=== PATIENT | female | born 1945 | race Caucasian/White ===

== ENCOUNTER 2017-08-01 07:47 | Outpatient (CLI) ==
--- NOTE | 2017-08-01 11:29 | MRI ---
EXAM: MRI of the right shoulder without contrast COMPARISON: None available. HISTORY: Right arm pain and decreased range of motion. No known injury. TECHNIQUE: Multiplanar noncontrast MR images of the right shoulder were acquired using a 1.2 Courtney m agnet. Several sequences were repeated due to patient motion artifact. There is moderately severe supraspinatus tendinosis which is most focused along the insertional fiber s with a tiny partial-thickness/rim rent tear involving the posterior insertional fibers measuring 3 mm medial to lateral dimension. Mild infraspinatus and subscapularis tendinosis. No full-thickness rotator cuff tear or tendon retraction. Minimal bursal surface fraying of the supraspinatus. Small amount of fluid in the subacromial/subdeltoid bursa. Limited assessment of the glenoid labrum on this non arthrographic study. Hyperintense signal involv ing the axillary pouch/inferior glenohumeral ligament which may represent sequela of a capsular sprai n or changes of adhesive capsulitis. Mild glenohumeral joint osteoarthrosis without an acute fractur e or dislocation. The long head of the biceps is located within the bicipital groove and is intact. Mild hypertrophic degenerative changes of the acromioclavicular joint. Type 1 acromion. No evidence of an os acromiale or abnormal widening of the acromioclavicular joint space. No soft tissue mass i dentified. IMPRESSION: 1. Mild to moderate rotator cuff tendinosis. Tiny partial-thickness/rim rent tear of the insertiona l fibers of the supraspinatus as well as bursal surface fraying without a full-thickness tear or tend on retraction. 2. Small amount of fluid in the subacromial/subdeltoid bursa. 3. Hyperintense signal involving the axillary pouch which may represent sequela of a capsular sprain or changes of adhesive capsulitis. 4. Mild degenerative changes of the acromioclavicular and glenohumeral joints.
--- NOTE | 2017-08-01 22:22 | MRI ---
EXAM: Cervical spine MRI without contrast. HISTORY: Neck pain. COMPARISON: None. TECHNIQUE: Multiplanar, multisequence MR images were acquired of the cervical spine without contrast . FINDINGS: There is no cerebellar tonsillar ectopia. Small effusions are present at the articulation s between the occipital condyles and lateral masses of C1 bilaterally. The cervical cord has normal s ignal intensity. There is straightening of the usual cervical lordosis. The cervical vertebra are n ormal in height and intrinsic bone marrow signal. There is osteophytosis with mild disc space narrow ing and degenerative endplate changes at C3-4 and osteophytosis with disc space narrowing and mild en dplate irregularity at C5-6 and C6-7. There are no paravertebral masses. The visualized lung apices are clear. C2-3: The intervertebral disc is normal. C3-4: There is a mild diffuse disc osteophyte complex, minor bilateral uncovertebral hypertrophy and minor right and mild left facet arthropathy. There is no central canal stenosis or foraminal stenos is. C4-5: There is a minor disc bulge and tiny right paracentral annular tear. There is no central savana l stenosis or foraminal stenosis. C5-6: There is a mild diffuse disc osteophyte complex and bilateral uncovertebral hypertrophy, great er on the left. This causes moderate left neural foraminal stenosis. C6-7: There is a mild disc bulge and bilateral uncovertebral hypertrophy. There is mild right neura l foraminal stenosis. C7-T1: The intervertebral disc is normal. IMPRESSION: 1. Mild cervical degenerative spondylosis without central canal stenosis. 2. No cervical disc herniations.
== END 2017-08-01 07:48 | disposition home or self-care (01) ==
LOC: RAD 07:47
PROVIDERS: ATTEND Internal Medicine
DX: M25.511 Pain in right shoulder (principal); M54.2 Cervicalgia

== ENCOUNTER 2017-08-22 09:00 | Outpatient (RCR) ==
--- NOTE | 2017-08-19 08:40 | RS.OPPTEV2 ---
Date of Note: 08/14/17 Visit #: 1 Date of Evaluation: 08/14/17 Payer Source: MEDICARE Surgery Performed?: No Treatment Diagnosis: Incomplete rotator cuff tear R shld History of Condition/Mechanism of Injury:: pt states pain began 2 months ago, no specific injury that she can recall. Prior Level of Function.....Patient was independent with: ADL's, Self Care, Work /Vocation, Ambulation/Mobility, Community Integration/Access Functional Limitations: Sleep, Reaching, Pushing, Pulling, Lifting, Carrying Current Subjective/complaints:: pt states that she has been hurting for approx 2 months R shld. pt has had hx of cervical pain over last several years. Treatment Side (optional): Right *Precautions: n/a Medical History Medical History: COPD, Arthritis Medical History Comments:: DDD cervical spine, fibromyalgia Surgical History: Hysterectomy Smoking Status: Former smoker Diagnostic Testing/Imaging:: MRI R shld: mild to mod rotator cuff tendinosis, small partial thickness rim rent tear of insertional fibers of the supraspinatus as well as bursal surface fraying, hyperintense signal involving axillary pouch which may represent sequela of a capsular sprain or changes of adhesive capsulitis. mild degenerative changes of acromioclavicular and glenohumeral joints. Hx Home Medications: pt to bring list next visit Patient's Goals: decrease shld pain. Pain Assessment - Pain Description Pain Location: R shld Pain Description: Sharp, Aching Current Pain Intensity: 5/10 Worst Pain Intensity: 8/10 Functional Outcome Measure UE Functional Index: 46 (42%) - G Codes & Severity Modifier G Codes & Modifier: carrying, moving, handling current CK. carrying, moving, handling goal CI Source of G Code score: UE functional index Observation - Observation Posture: Forward Head, Rounded Shoulders, Increased Thoracic Kyphosis Handedness: Right Gait - Gait Pattern General Gait Pattern Observation: No Deviations/Normal General Range of Motion: cervical ROM limited in extension and L rotation with pain. LUE WFL's. BLE WFL's Muscle Strength: LUE 4+/5. BLE 5/5 Shoulder ROM: Left WFL's Shoulder Muscle Strength: Left WFL's - Right Shoulder ROM Right Shoulder Flexion: 140 (AROM) Right Shoulder Abduction: 88 (AROM) Right Shoulder External Rotation: 40 (AROM) Right Shoulder ROM Limitations: Soft Tissue Tightness, Muscle Weakness, Pain - Right Shoulder Strength Right Shoulder Flexion: 3- Fair- Right Shoulder Abduction: 3- Fair- Right Shoulder Adduction: 3+ Fair+ Right Shoulder External Rotation: 3- Fair- - Special Tests Shoulder Empty Can (Supraspinatus) Test: Negative Right Shoulder Speed's Sign Test: Positive Right Shoulder Drop Arm Test: Negative Right Palpation Palpation Findings: Tenderness, Trigger Point Comments:: tenderness and trigger points noted in area of upper scapula as well as AC joint tenderness. pt also with upper trap tightness as well as tenderness in cervical paraspinal Sensation - Sensation Right Upper Extremity: Impaired (n/t R hand) Left Upper Extremity: Intact/Normal Right Lower Extremity: Intact/Normal Left Lower Extremity: Intact/Normal Balance - Sitting Balance Static Sitting Balance: Normal Dynamic Sitting Balance: Normal - Standing Balance Static Standing Balance: Normal Dynamic Standing Balance: Normal - Heat/Cryotherapy Treatment: Cryotherapy Comments:: R shld Interventions - Exercise/Activities/Manual Therapy Exercises/Activities: pt performed gentle upper trap stretches, scapular retraction, shld shrugs, corner stretch Manual Therapy: n/a HOME EXERCISE PROGRAM: pt given written HEP with corner stretch, scapular retraction, shld shrugs - Charges Timed Code Treatment Minutes: 48 Total Treatment Time: 52 Procedures billed for this date of service:: klelie santiago, ice pack EVALUATION COMPLEXITY LEVEL EVALUATION COMPLEXITY LEVEL: HISTORY: Medium (fibromyalgia, OA, COPD), EXAM OF BODY SYSTEMS: Low (pain, strength, ROM ), CLINICAL PRESENTATION: Low (stable), CLINICAL DECISION MAKING: Low Assessment Assessment: pt presents with pain in R shld as well as decreased R shld ROM, strength. pt pain is limiting ability to perform household duties. 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 Goal to be met by: 09/25/17 Goal #4: Independent with HEP Goal to be met by: 09/25/17 Plan - Treatment to be Provided Procedures: Therapeutic Exercises, Therapeutic Activity, Manual Therapy, Massage , Patient Education Modalities: Electrical Stimulation, Ultrasound/Phonophoresis, Class IV Laser, Cryotherapy, Hot Packs - Treatment Plan Frequency: 3 X week Duration: 6 weeks ORDER # VISITS AND/OR THROUGH DATE: 09/25/17 - Treatment Code (1) Incomplete rotator cuff tear or rupture of right shoulder, not specified as traumatic Code(s): M75.111 - INCOMPLETE ROTATR-CUFF TEAR/RUPTR OF R SHOULDER, NOT TRAUMA (2) Pain in joint, shoulder region Code(s): M25.519 - PAIN IN UNSPECIFIED SHOULDER Qualifiers: Laterality: right Qualified Code(s): M25.511 - Pain in right shoulder (3) Joint stiffness Code(s): M25.60 - STIFFNESS OF UNSPECIFIED JOINT, NOT ELSEWHERE CLASSIFIED
--- NOTE | 2017-08-19 11:03 | RS.OPPTDN ---
Subjective Date of Note: 08/19/17 Visit #: 2 Date of Evaluation: 08/14/17 Payer Source: MEDICARE Treatment Diagnosis: Incomplete rotator cuff tear R shld Current Subjective/complaints:: Patient reports she has some increased right shoulder pain with initial HEP. Following treatment today patient reports a reduction in right shoulder pain. *Precautions: n/a Pain Assessment - Pain Description Current Pain Intensity: 5/10, decreased with treatment - Treatment Modality: Ultrasound Parameters/Method Applied: [id number] at 1.5w/cm2 to the right shoulder joint and the upper arm prior to EX. Patient Position: Sitting - Heat/Cryotherapy Treatment: Hot Pack (En ded with HP [id number] to the right shoulder joint. Patient in sitting. ) Interventions - Exercise/Activities/Manual Therapy Exercises/Activities: PROM of the right shoulder. Gentle assisted upper trap stretches and mid scap stretching. Scapular retraction, shld shrugs. Isometric shoulder ext, multiple reps. Isometric right shoulder IR, ER, and biceps, sets of 4s/5reps each. Witheld corner stretch due to reports of discomfort. Instructed in Codmans and patient given copy of new ex. Total minutes of Exercise: 15mins Manual Therapy: n/a HOME EXERCISE PROGRAM: pt given written HEP with corner stretch, scapular retraction, shld shrugs. Codmans. - Charges Timed Code Treatment Minutes: 25mins Total Treatment Time: 40mins Procedures billed for this date of service:: US, EX, HP Assessment: Patient responded to modalities with report of pain reduction. Seems motivated to progress with HEP. 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
--- NOTE | 2017-08-22 09:59 | RS.OPPTDN ---
Subjective Date of Note: 08/22/17 Visit #: 3 Date of Evaluation: 08/14/17 Payer Source: MEDICARE Treatment Diagnosis: Incomplete rotator cuff tear R shld Current Subjective/complaints:: Patient reports last treatment helped reduce right shoulder pain. She states she is working on HEP. *Precautions: n/a Pain Assessment - Pain Description Pain Location: right shoulder and upper arm Pain Description: Aching Current Pain Intensity: 2/10 following treatment - Treatment Modality: Ultrasound Parameters/Method Applied: [id number] at 1.5w/cm2 to the right shoulder joint and upper arm prior to EX. Patient Position: Sitting Interventions - Exercise/Activities/Manual Therapy Exercises/Activities: PROM of the right shoulder. Scapular retraction, shld shrugs. Isometric shoulder ext, add, abd, flex, IR, and ER at neutral position, 4s/5reps. Wand for bilateral overhead flexion, 10reps. Yellow theraband for scap retraction and bilateral shoulder ER, 2s/10reps each. Total minutes of Exercise: 15mins Manual Therapy: n/a HOME EXERCISE PROGRAM: pt given written HEP with corner stretch, scapular retraction, shld shrugs. Codmans. Yellow theraband for scap retraction and bilateral shoulder ER. - Charges Timed Code Treatment Minutes: 25mins Total Treatment Time: 45mins Procedures billed for this date of service:: HP, US, EX Assessment: Patient reporting improvement in pain and demos increased ability with exercise. Patient Education: Home Exercise Program Patient demonstrates compliance with HEP?: Yes Short Term Goals Goal #1: pt rate pain R shld <5 with activity Goal to be met by: 09/04/17 Progress towards Goal:: Progressing Goal #2: Improve ROM R shld flex 150 abd 95, ER 45 Goal to be met by: 09/04/17 Progress towards Goal:: Progressing Goal #3: Decreased upper trap tightness bilateral Goal to be met by: 09/04/17 Progress towards Goal:: Progressing Automotive Service Technician Goals Goal #1: pt rate pain < 3 R shld With activity Goal to be met by: 09/25/17 Goal #2: Improve strength R UE 4/5 Goal to be met by: 09/25/17 Goal #3: 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
== END 2017-08-24 ==
PROVIDERS: ATTEND Orthopaedic Surgery
DX: M75.111 Incomplete rotator cuff tear or rupture of right shoulder, not specified as traumatic (principal)

== ENCOUNTER 2017-09-12 09:00 | Outpatient (RCR) ==
--- NOTE | 2017-08-26 12:14 | RS.OPPTDN ---
Subjective Date of Note: 08/26/17 Visit #: 4 Date of Evaluation: 08/14/17 Payer Source: MEDICARE Treatment Diagnosis: Incomplete rotator cuff tear R shld Current Subjective/complaints:: Patient says treatment has been helping, but still has soreness to the R upper arm and has difficulty with donning/doffing undergarments. *Precautions: n/a Pain Assessment - Pain Description Pain Location: sore to the anterior R shoulder and along the upper arm - Treatment Modality: Ultrasound Parameters/Method Applied: continuous @ 1.5 w/cm2 x 10 mins to the R upper arm Patient Position: Sitting - Heat/Cryotherapy Treatment: Hot Pack (15 mins to the R shoulder in sitting) Interventions - Exercise/Activities/Manual Therapy Exercises/Activities: PROM of the right shoulder. Scapular retraction, shld shrugs. Isometric shoulder ext, add, abd, flex, IR, and ER at neutral position, 4s/5reps. Wand for bilateral overhead flexion, 10reps. Yellow theraband for scap retraction and bilateral shoulder ER, 2s/10reps each. Total minutes of Exercise: 15 Manual Therapy: n/a HOME EXERCISE PROGRAM: pt given written HEP with corner stretch, scapular retraction, shld shrugs. Codmans. Yellow theraband for scap retraction and bilateral shoulder ER. - Charges Timed Code Treatment Minutes: 25 Total Treatment Time: 40 Procedures billed for this date of service:: hp, u/s, ex Assessment: Patient seeing mild improvement with R shoulder pain and appears to benoit all therex well to near WNL in sitting. Patient continues with some funcitonal deficits including donning/doffing undergarments. Patient Education: Education of diagnosis, Home Exercise Program Patient demonstrates compliance with HEP?: Yes Short Term Goals Goal #1: pt rate pain R shld <5 with activity Goal to be met by: 09/04/17 Progress towards Goal:: Progressing Goal #2: Improve ROM R shld flex 150 abd 95, ER 45 Goal to be met by: 09/04/17 Progress towards Goal:: Progressing Goal #3: Decreased upper trap tightness bilateral Goal to be met by: 09/04/17 Progress towards Goal:: Progressing Wheel Press Operator Goals Goal #1: pt rate pain < 3 R shld With activity Goal to be met by: 09/25/17 Goal #2: Improve strength R UE 4/5 Goal to be met by: 09/25/17 Goal #3: 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
--- NOTE | 2017-09-02 10:06 | RS.OPPTDN ---
Subjective Date of Note: 09/02/17 Visit #: 6 Date of Evaluation: 08/14/17 Payer Source: MEDICARE Treatment Diagnosis: Incomplete rotator cuff tear R shld Current Subjective/complaints:: Patient reports the R shoulder is not hurting at this time ,is doing her home exercises . *Precautions: n/a - Treatment Modality: Ultrasound Parameters/Method Applied: 10 mins. @ 1.5 w/cm2 to R shoulder , continuous mode. Patient Position: Sitting - Heat/Cryotherapy Treatment: Hot Pack (20 mins. prior to US and exerises) Interventions - Exercise/Activities/Manual Therapy Exercises/Activities: PROM of the right shoulder. Scapular retraction, shld shrugs. Isometric shoulder ext, add, abd, flex, IR, and ER at neutral position, 2/10/reps. Wand for bilateral overhead flexion, 2/10reps. HEP review. Total minutes of Exercise: 20 Manual Therapy: n/a Total minutes of Manual Therapy: 0 HOME EXERCISE PROGRAM: pt given written HEP with corner stretch, scapular retraction, shld shrugs. Codmans. Yellow theraband for scap retraction and bilateral shoulder ER. - Charges Timed Code Treatment Minutes: 30 Total Treatment Time: 50 Procedures billed for this date of service:: hp,US,ex Assessment: Patient reports slight stretch dicomfort at end range of ER today.She tolerates isometrics well.She has good understanding of HEP and safety precautions.She has increased discomfort with reaching behind her,such as tucking a shirt. Patient Education: Education of diagnosis, Body/Joint mechanics, Home Exercise Program, Home Safety, Activity Modification, Education of Plan of Care Patient demonstrates compliance with HEP?: Yes Short Term Goals Goal #1: pt rate pain R shld <5 with activity Goal to be met by: 09/04/17 Progress towards Goal:: Progressing Goal #2: Improve ROM R shld flex 150 abd 95, ER 45 Goal to be met by: 09/04/17 Progress towards Goal:: Progressing Goal #3: Decreased upper trap tightness bilateral Goal to be met by: 09/04/17 Progress towards Goal:: Progressing [facility] Goals Goal #1: pt rate pain < 3 R shld With activity Goal to be met by: 09/25/17 Progress towards goal: Progressing Goal #2: Improve strength R UE 4/5 Goal to be met by: 09/25/17 Goal #3: 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
--- NOTE | 2017-09-05 11:24 | RS.OPPTDN ---
Subjective Date of Note: 09/05/17 Visit #: 7 Date of Evaluation: 08/14/17 Payer Source: MEDICARE Treatment Diagnosis: Incomplete rotator cuff tear R shld Current Subjective/complaints:: Patient reports the shoulder feels better today.She is doing her exercises at home . *Precautions: n/a Pain Assessment - Pain Description Pain Description: Dull, Aching Pain Description: "minimal " - Treatment Modality: Ultrasound Parameters/Method Applied: 10 mins. ,continuous mode @ 1.5 w/cm2 to R shoulder. Patient Position: Sitting - Heat/Cryotherapy Treatment: Hot Pack (20 mins. prior to US and exercise) Interventions - Exercise/Activities/Manual Therapy Exercises/Activities: PROM of the right shoulder. Scapular retraction, shld shrugs. Isometric shoulder ext, add, abd, flex, IR, and ER at neutral position, 2/10/reps. Yellow theraband exercises for shoulder rowing motion ,IR /ER , 2/10 each.Standing posture education ,scapular pro/retraction. Total minutes of Exercise: 20 Manual Therapy: n/a Total minutes of Manual Therapy: 0 HOME EXERCISE PROGRAM: pt given written HEP with corner stretch, scapular retraction, shld shrugs. Codmans. Yellow theraband for scap retraction and bilateral shoulder ER. - Charges Timed Code Treatment Minutes: 30 Total Treatment Time: 50 Procedures billed for this date of service:: hp,US,ex Assessment: Patient reorts less pain with ROM today,except she has pain with shoulder extension at end range with rowing motion.She is attentive and compliant to HEP. Patient Education: Education of diagnosis, Body/Joint mechanics, Home Exercise Program, Home Safety, Activity Modification, Education of Plan of Care Patient demonstrates compliance with HEP?: Yes Short Term Goals Goal #1: pt rate pain R shld <5 with activity Goal to be met by: 09/04/17 Progress towards Goal:: Progressing Goal #2: Improve ROM R shld flex 150 abd 95, ER 45 Goal to be met by: 09/04/17 Progress towards Goal:: Progressing Goal #3: Decreased upper trap tightness bilateral Goal to be met by: 09/04/17 Progress towards Goal:: Progressing Diesel Powerplant Supervisor Goals Goal #1: pt rate pain < 3 R shld With activity Goal to be met by: 09/25/17 Progress towards goal: Progressing Goal #2: Improve strength R UE 4/5 Goal to be met by: 09/25/17 Goal #3: 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
--- NOTE | 2017-09-09 15:56 | RS.OPPTDN ---
Subjective Date of Note: 09/09/17 Visit #: 8 Date of Evaluation: 08/14/17 Payer Source: MEDICARE Treatment Diagnosis: Incomplete rotator cuff tear R shld Current Subjective/complaints:: Patient reports right shoulder has been progressing well but she has some increased discomfort today. She feels she slept wrong on her right side. Reports she is working on HEP and has increased her daily activities at home. *Precautions: n/a Pain Assessment - Pain Description Pain Location: Right shoulder Pain Description: Aching Current Pain Intensity: 3/10 - Treatment Modality: Ultrasound Parameters/Method Applied: [id number] at 1.5w/cm2 to the right shoulder joint and upper arm. Patient Position: Sitting - Heat/Cryotherapy Treatment: Hot Pack ([id number] to the right shoulder prior to US and EX. Patient in sitting. ) Interventions - Exercise/Activities/Manual Therapy Exercises/Activities: PROM of the right shoulder. Scapular retraction, shld shrugs. Isometric shoulder ext, add, abd, flex, IR, and ER at neutral position, 2/10/reps. Began 1# dumbells for resistive right shoulder flexion, scaption, and ER in 90/90 position, 3s/5reps each. 15miYellow theraband exercises for bilateral shoulder ER, 2s/10reps. Scapular retraction green theraband 2s/10reps. Total minutes of Exercise: 15mins Manual Therapy: n/a HOME EXERCISE PROGRAM: pt given written HEP with corner stretch, scapular retraction, shld shrugs. Codmans. Yellow theraband for scap retraction and bilateral shoulder ER. - Charges Timed Code Treatment Minutes: 25mins Total Treatment Time: 45mins Procedures billed for this date of service:: HP, US, EX Assessment: Patient reporting an increase in her discomfort today, but is able to progress right shoulder strengtheing exercise. Patient Education: Education of diagnosis, Body/Joint mechanics, Home Exercise Program, Home Safety Patient demonstrates compliance with HEP?: Yes Short Term Goals Goal #1: pt rate pain R shld <5 with activity Goal to be met by: 09/04/17 Progress towards Goal:: Partially Met Goal #2: Improve ROM R shld flex 150 abd 95, ER 45 Goal to be met by: 09/04/17 Progress towards Goal:: Progressing Goal #3: Decreased upper trap tightness bilateral Goal to be met by: 09/04/17 Progress towards Goal:: Partially Met Jail Goals Goal #1: pt rate pain < 3 R shld With activity Goal to be met by: 09/25/17 Progress towards goal: Progressing Goal #2: Improve strength R UE 4/5 Goal to be met by: 09/25/17 Goal #3: 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
--- NOTE | 2017-09-10 12:50 | RS.OPPTDN ---
Subjective Date of Note: 08/29/17 Visit #: 5 Date of Evaluation: 08/14/17 Payer Source: MEDICARE Treatment Diagnosis: Incomplete rotator cuff tear R shld Current Subjective/complaints:: Patient reports she is using the right UE more with light daily activities. States she has less trouble donning/doffing shirts , but cal reach back to hook her bra. Reports she cannot lift dishes consistently. *Precautions: n/a Pain Assessment - Pain Description Pain Location: Right shoulder joint and upper arm Pain Description: Aching Current Pain Intensity: mild to mod - Treatment Parameters/Method Applied: [id number] @ 1.5w/cm2 right shoulder joint and upper arm prior to EX. Patient Position: Sitting - Heat/Cryotherapy Treatment: Hot Pack ([id number] to the right shoulder prior to US and EX. Patient in sitting. ) Interventions - Exercise/Activities/Manual Therapy Exercises/Activities: PROM of the right shoulder. Scapular retraction, shld shrugs. Isometric shoulder ext, add, abd, flex, IR, and ER at neutral position, 4s/5reps. Wand for bilateral overhead flexion, 10reps. Yellow theraband for scap retraction and bilateral shoulder ER, 2s/10reps each. Total minutes of Exercise: 15mins Manual Therapy: n/a HOME EXERCISE PROGRAM: pt given written HEP with corner stretch, scapular retraction, shld shrugs. Codmans. Yellow theraband for scap retraction and bilateral shoulder ER. - Charges Timed Code Treatment Minutes: 25mins Total Treatment Time: 45mins Procedures billed for this date of service:: HP, US, EX Assessment: Patient progressing with strengthening. Patient Education: Body/Joint mechanics, Home Exercise Program, Activity Modification Patient demonstrates compliance with HEP?: Yes Short Term Goals Goal #1: pt rate pain R shld <5 with activity Goal to be met by: 09/04/17 Progress towards Goal:: Progressing Goal #2: Improve ROM R shld flex 150 abd 95, ER 45 Goal to be met by: 09/04/17 Progress towards Goal:: Progressing Goal #3: Decreased upper trap tightness bilateral Goal to be met by: 09/04/17 Progress towards Goal:: Progressing [facility] Goals Goal #1: pt rate pain < 3 R shld With activity Goal to be met by: 09/25/17 Goal #2: Improve strength R UE 4/5 Goal to be met by: 09/25/17 Goal #3: 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
--- NOTE | 2017-09-12 14:34 | RS.OPPTDN ---
Subjective Date of Note: 09/12/17 Visit #: 9 Date of Evaluation: 08/14/17 Payer Source: MEDICARE Treatment Diagnosis: Incomplete rotator cuff tear R shld Current Subjective/complaints:: Patient reports she has progressed well with treatment and exercise. She is doing most light to mod ADL's. She is careful with lifting but can brush her hair without difficulty. States she feels she can continue HEP and will see physician next week. *Precautions: n/a Pain Assessment - Pain Description Pain Location: Right shoulder Current Pain Intensity: 2/10 Other Comments regarding Pain:: Reports periods of no pain at rest. Reports increased pain at night if she rolls onto right shoulder. - Treatment Modality: Ultrasound Parameters/Method Applied: [id number] at 1.5w/cm2 to the right shoulder joint and upper arm. Patient Position: Sitting - Heat/Cryotherapy Treatment: Hot Pack ([id number] to the right shoulder prior to US and EX. Patient in sitting. ) Interventions - Exercise/Activities/Manual Therapy Exercises/Activities: PROM of the right shoulder. Scapular retraction, shld shrugs. Isometric shoulder ext, add, abd, flex, IR, and ER at neutral position, 4s/5reps. Increased to 3# wand for bilateral overhead flexion, 10reps. While holding ball with arms extended, overhead flexion and horizontal abd each direction, 2s/5reps each. Increased to blue theraband for scap retraction and red for bilateral shoulder ER, 2s/10reps each. Reviewed patient education, HEP , and FOM. Patient given additional therabands for progression of resistive exercise with HEP. Total minutes of Exercise: 28mins Manual Therapy: n/a HOME EXERCISE PROGRAM: pt given written HEP with corner stretch, scapular retraction, shld shrugs. Codmans. Yellow theraband for scap retraction and bilateral shoulder ER. - Objective Findings Observations,measurements,etc.: Patient reassessment of the UE Functional Scale increased to 66/80 or 18% (was 46/80 or 42% on Eval) - Charges Timed Code Treatment Minutes: 38mins Total Treatment Time: 58mins Procedures billed for this date of service:: HP, US, EX2 Assessment: Patient has progressed well with treatment. She has met 6 or 7 goals. She reported improvement with ADL's and felt she was ready for discharge with HEP. Patient Education: Education of diagnosis, Body/Joint mechanics, Home Exercise Program, Activity Modification, Education of Plan of Care Patient demonstrates compliance with HEP?: Yes Short Term Goals Goal #1: pt rate pain R shld <5 with activity Goal to be met by: 09/04/17 Progress towards Goal:: Met Goal #2: Improve ROM R shld flex 150 abd 95, ER 45 Goal to be met by: 09/04/17 Progress towards Goal:: Met Goal #3: Decreased upper trap tightness bilateral Goal to be met by: 09/04/17 Progress towards Goal:: Met [facility] Goals Goal #1: pt rate pain < 3 R shld With activity Goal to be met by: 09/25/17 Progress towards goal: Partially Met Goal #2: Improve strength R UE 4/5 Goal to be met by: 09/25/17 Progress towards goal: Met Goal #3: 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
--- NOTE | 2017-09-19 11:44 | RS.OPPTDC ---
Date of Discharge: 09/12/17 Date of Evaluation: 08/14/17 Number of Visits: 9 Treatment Diagnosis: Incomplete rotator cuff tear R shld Current Level of Function: pt demonstrates full PROM, AROM WFL's. Strength 4 to 4+/5 MMT all except R shld ER 4/5. pt is independent with HEP. Current Complaints/Gains: pt reports she is doing much better, is able to perform most light to mod ADL's. pt states she is independent with HEP after dc. Functional Outcome Measure UE Functional Index: 66 (18%) - G Codes & Severity Modifier G Codes & Modifier: carrying moving and handling goal CI. carrying moving and handling dc CI Source of G Code score: UE functional scale Observation - Observation Posture: Forward Head, Rounded Shoulders Handedness: Right Gait - Gait Pattern General Gait Pattern Observation: No Deviations/Normal General Range of Motion: R shld ROM WFL's Muscle Strength: strength 4 to 4+/5 Interventions - Exercise/Activities/Manual Therapy Exercises/Activities: n/a Manual Therapy: n/a HOME EXERCISE PROGRAM: pt given written HEP with corner stretch, scapular retraction, shld shrugs. Codmans. Yellow theraband for scap retraction and bilateral shoulder ER. - Charges Timed Code Treatment Minutes: n/a Total Treatment Time: n/a Procedures billed for this date of service:: n/a Assessment Assessment: pt has met 6 out ot 7 goals. pt has made signiticant improvement with ROM as well as strength. pt also has improved with ADL's. Patient Education: Home Exercise Program, Activity Modification, Education of Plan of Care Rehab Potential: Good Short Term Goals Goal #1: pt rate pain R shld <5 with activity Goal to be met by: 09/04/17 Progress towards Goal:: Met Goal #2: Improve ROM R shld flex 150 abd 95, ER 45 Goal to be met by: 09/04/17 Progress towards Goal:: Met Goal #3: Decreased upper trap tightness bilateral Goal to be met by: 09/04/17 Progress towards Goal:: Met [facility] Goals Goal #1: pt rate pain < 3 R shld With activity Goal to be met by: 09/25/17 Progress towards goal: Partially Met Goal #2: Improve strength R UE 4/5 Goal to be met by: 09/25/17 Progress towards goal: Met Goal #3: 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
== END 2017-09-23 23:59 ==
PROVIDERS: ATTEND Orthopaedic Surgery
DX: M75.111 Incomplete rotator cuff tear or rupture of right shoulder, not specified as traumatic (principal); M25.511 Pain in right shoulder; M25.611 Stiffness of right shoulder, not elsewhere classified